=== PATIENT | female | born 1960 | race Caucasian/White ===

== ENCOUNTER 2018-03-13 18:10 | Emergency (ER) | payer OTHER ==
[~2018-03-13] VITALS: Ht 160 cm; Wt 61.9 kg
[2018-03-13 18:21] VITALS: Ht 160 cm; Wt 61.9 kg
[2018-03-13 19:42] VITALS: BP 166/91
== END 2018-03-13 19:42 | disposition home or self-care (01) ==
LOC: ED 18:10
DX: S20.219A Contusion of unspecified front wall of thorax, initial encounter (principal); I10 Essential (primary) hypertension; Z88.0 Allergy status to penicillin; Z86.79 Personal history of other diseases of the circulatory system; V49.9XXA Car occupant (driver) (passenger) injured in unspecified traffic accident, initial encounter; Y93.73 Activity, racquet and hand sports; Y92.89 Other specified places as the place of occurrence of the external cause; Y99.8 Other external cause status
CPT/HCPCS: Q0092